=== PATIENT | female | born 1995 | race Asian ===

== ENCOUNTER 2017-09-23 15:25 | Emergency (ER) | payer OTHER ==
[~2017-09-23] VITALS: Ht 167.6 cm; Wt 81.6 kg
[2017-09-23 15:25] VITALS: BP 126/87; TEMP 99.5
[~2017-09-23 15:25] MED LIST: DEPO
== END 2017-09-23 16:30 | disposition home or self-care (01) ==
LOC: ED 15:25
DX: L03.115 Cellulitis of right lower limb (principal)
CPT/HCPCS: 96372; 99282; J0696

== ENCOUNTER 2018-03-23 17:29 | Emergency (ER) | payer OTHER ==
[~2018-03-23] VITALS: Ht 167.6 cm; Wt 88.9 kg
[2018-03-23 18:58] LABS: PLATELET COUNT 308 K/uL (152-353)
[2018-03-23 19:05] LABS: POTASSIUM 3.8 mmol/L (3.6-5.2)
[2018-03-23 19:26] VITALS: BP 110/71; TEMP 97.7
== END 2018-03-23 19:24 | disposition home or self-care (01) ==
LOC: ED 17:29
DX: O21.9 Vomiting of pregnancy, unspecified (principal); Z3A.09 9 weeks gestation of pregnancy
CPT/HCPCS: 80053; 81000; 85027; 99284

== ENCOUNTER 2019-10-27 11:32 | Emergency (ER) | payer OTHER ==
[~2019-10-27] VITALS: Ht 167.6 cm; Wt 88.9 kg
[2019-10-27 11:32] VITALS: TEMP 99.6
[2019-10-27 13:15] VITALS: BP 168/78
== END 2019-10-27 13:15 | disposition home or self-care (01) ==
LOC: ED 11:32
DX: R10.84 Generalized abdominal pain (principal); Z3A.29 29 weeks gestation of pregnancy; V49.9XXA Car occupant (driver) (passenger) injured in unspecified traffic accident, initial encounter; Y92.89 Other specified places as the place of occurrence of the external cause
CPT/HCPCS: 99284